=== PATIENT | female | born 2000 | race Caucasian/White ===

== ENCOUNTER 2019-10-15 16:37 | Emergency (ER) | payer MEDICAID ==
[~2019-10-15] VITALS: Ht 160 cm; Wt 54.9 kg
[2019-10-15 16:52] VITALS: BP_SYST 95
== END 2019-10-15 20:15 | disposition left against medical advice (07) ==
LOC: SED 16:37
DX: R42 Dizziness and giddiness (principal); Z53.21 Procedure and treatment not carried out due to patient leaving prior to being seen by health care provider